=== PATIENT | male | born 1995 | race Two or more races ===

== ENCOUNTER 2018-08-10 22:24 | Emergency (ER) | payer MEDICAID ==
[~2018-08-10] VITALS: Ht 172.7 cm; Wt 117.9 kg
[2018-08-10 22:45] VITALS: BP 156/90
[2018-08-11] MEDS ORDERED: ALBUTEROL SULF 2.5 MG/0.5ML(0.5%) NEB SOLN NEB ONE (00:15)
[2018-08-11] MEDS ORDERED: IPRATROPIUM BROM 0.5 MG/2.5ML INH SOL NEB ONE (00:15)
[2018-08-11] MEDS ORDERED: methylPREDNISolone SOD SUCC 125 MG/2 ML VL IM ONE (00:15)
== END 2018-08-11 01:25 | disposition home or self-care (01) ==
LOC: ER 22:36
DX: J45.901 Unspecified asthma with (acute) exacerbation (principal); J06.9 Acute upper respiratory infection, unspecified
CPT/HCPCS: 71046; 94640; 96372; 99284; J2930; J7611; J7644

== ENCOUNTER 2019-03-18 14:57 | Emergency (ER) | payer MEDICAID ==
[~2019-03-18] VITALS: Ht 172.7 cm; Wt 115.7 kg
[2019-03-18 15:07] VITALS: BP 136/79
[2019-03-18] MEDS ORDERED: BACITRACIN TOP OINT 1 UD PKG TOP ONE (17:00)
[2019-03-18] MEDS ORDERED: LIDOCAINE W/ EPINEPHRINE 2% INJ 20ML VIAL ID ONE (17:00)
[2019-03-18] MEDS ORDERED: TETANUS-DIPTH-ACEL PERTUSSIS 0.5ML SYRG IM ONE (17:15)
== END 2019-03-18 18:23 | disposition home or self-care (01) ==
LOC: ER 14:57
DX: S61.412A Laceration without foreign body of left hand, initial encounter (principal); J45.909 Unspecified asthma, uncomplicated; F17.210 Nicotine dependence, cigarettes, uncomplicated; W26.8XXA Contact with other sharp object(s), not elsewhere classified, initial encounter; Y93.89 Activity, other specified; Y99.8 Other external cause status; Y92.89 Other specified places as the place of occurrence of the external cause
CPT/HCPCS: 12002; 73130; 90471; 90715